=== PATIENT | male | born 1965 | race African-American/Black ===

== ENCOUNTER 2017-02-19 17:23 | Emergency (ER) | payer MEDICAID ==
[~2017-02-19] VITALS: Ht 172.7 cm; Wt 75.0 kg
[2017-02-19] MEDS ORDERED: DIPHENHYDRAMINE 50MG/ML VIAL IV ONE (20:45)
[2017-02-20] MEDS ORDERED: EPINEPHRINE 1:1000 1 MG/ML AMP INJ ONE (03:30)
[2017-02-20] MEDS ORDERED: NICOTINE 21MG PATCH TD ONE (04:00)
[2017-02-20] MEDS ORDERED: METHYLPREDNISOLONE SOD SUCC 125 MG/2 ML VIAL IV SCH (06:00)
[2017-02-20 07:21] VITALS: BP 157/100
== END 2017-02-20 08:17 | disposition left against medical advice (07) ==
LOC: ER 17:24
DX: T78.3XXA Angioneurotic edema, initial encounter (principal); R11.2 Nausea with vomiting, unspecified; R05 Cough; J45.909 Unspecified asthma, uncomplicated; I10 Essential (primary) hypertension; G43.909 Migraine, unspecified, not intractable, without status migrainosus; F12.10 Cannabis abuse, uncomplicated; Z88.8 Allergy status to other drugs, medicaments and biological substances; Z86.73 Personal history of transient ischemic attack (TIA), and cerebral infarction without residual deficits
CPT/HCPCS: 36415; 36430; 86850; 86900; 86901; 86927; 96372; 96374; 96375; 99285; J0171; J1200; J2930; J7040; P9017; Z7610

== ENCOUNTER 2017-04-29 03:50 | Emergency (ER) | payer MEDICAID ==
[~2017-04-29] VITALS: Ht 170.2 cm; Wt 65.0 kg
[2017-04-29 05:00] VITALS: BP 161/92
== END 2017-04-29 11:40 | disposition left against medical advice (07) ==
LOC: ER 10:33
DX: M54.5 Low back pain (principal); Z53.21 Procedure and treatment not carried out due to patient leaving prior to being seen by health care provider

== ENCOUNTER 2018-12-06 17:17 | Emergency (ER) | payer MEDICAID ==
[~2018-12-06] VITALS: Ht 170.2 cm; Wt 82.0 kg
[2018-12-06 17:30] VITALS: BP 105/76
== END 2018-12-06 23:30 | disposition left against medical advice (07) ==
LOC: ER 17:17
DX: Z53.21 Procedure and treatment not carried out due to patient leaving prior to being seen by health care provider (principal); I10 Essential (primary) hypertension; F17.200 Nicotine dependence, unspecified, uncomplicated; Z88.8 Allergy status to other drugs, medicaments and biological substances; Z86.73 Personal history of transient ischemic attack (TIA), and cerebral infarction without residual deficits

== ENCOUNTER 2018-12-23 16:41 | Emergency (ER) | payer MEDICAID ==
[~2018-12-23] VITALS: Ht 177.8 cm; Wt 73.0 kg
[2018-12-23 16:43] VITALS: BP 145/95
== END 2018-12-23 18:36 | disposition left against medical advice (07) ==
LOC: ER 16:41
DX: R68.84 Jaw pain (principal); Z53.21 Procedure and treatment not carried out due to patient leaving prior to being seen by health care provider

== ENCOUNTER 2018-12-24 01:56 | Emergency (ER) | payer MEDICAID ==
[~2018-12-24] VITALS: Ht 170.2 cm; Wt 60.0 kg
[2018-12-24] MEDS ORDERED: KETOROLAC 30MG/ML VIAL IV STA (06:32)
[2018-12-24 11:40] VITALS: BP 133/80
== END 2018-12-24 11:42 | disposition short-term general hospital (02) ==
LOC: ER 01:56
DX: S02.69XA Fracture of mandible of other specified site, initial encounter for closed fracture (principal); I10 Essential (primary) hypertension; F12.10 Cannabis abuse, uncomplicated; F17.210 Nicotine dependence, cigarettes, uncomplicated; Y04.0XXA Assault by unarmed brawl or fight, initial encounter; Y93.89 Activity, other specified; Y92.488 Other paved roadways as the place of occurrence of the external cause
CPT/HCPCS: 70450; 70486; 96374; 99285; J1885; Z7610

== ENCOUNTER 2019-02-04 02:58 | Emergency (ER) | payer MEDICAID ==
[~2019-02-04] VITALS: Ht 170.2 cm; Wt 64.3 kg
[2019-02-04 03:29] LABS: BASOPHILS % 0.5 % (0.0-2.0); HEMOGLOBIN. 14.6 g/dL (14.0-18.0); MEAN CORPUSCULAR VOLUME 97.7 fL (80.0-94.0); MEAN PLATELET VOLUME 7.5 fl (7.4-10.4); MONOCYTES % 11.4 % (2.0-8.0); NEUTROPHILS % 60.1 % (40.0-76.0); PLATELET 281 x1000/uL (130-400); RED CELL DISTRIBUTION WIDTH 13.5 % (11.6-14.6)
[2019-02-04 03:34] LABS: CHLORIDE 108 mEq/L (98-107)
[2019-02-04 03:37] LABS: PROTHROMBIN TIME 10.7 sec (9.6-11.0)
[2019-02-04 03:38] LABS: ETHANOL BLOOD 108 mg/dL
[2019-02-04 03:42] LABS: LDL CHOLESTEROL 65 mg/dL (5-100)
[2019-02-04] MEDS ORDERED: ASPIRIN 325MG EC TABLET PO ONE (04:00)
[2019-02-04 04:05] LABS: CLARITY URINE CLEAR (CLEAR); COLOR URINE YELLOW (YELLOW); KETONES URINE NEGATIVE (NEGATIVE); LEUKOCYTE ESTERASE URINE TRACE (NEGATIVE); NITRITE URINE NEGATIVE (NEGATIVE); OCCULT BLOOD URINE NEGATIVE (NEGATIVE); PH URINE 5.5 (4.5-8.0); PROTEIN URINE NEGATIVE (NEGATIVE); SPECIFIC GRAVITY URINE 1.008 (1.005-1.030); UROBILINOGEN URINE 0.2 E.U./dL (0.2-1.0)
[2019-02-04 04:15] LABS: *AMPHETAMINES SCREEN URINE NEGATIVE (NEGATIVE)
[2019-02-04 04:16] LABS: *BARBITURATES SCREEN URINE NEGATIVE (NEGATIVE); *BENZODIAZEPINES SCREEN URINE NEGATIVE (NEGATIVE); *COCAINE SCREEN URINE PRESUMTIVE POSITIVE (NEGATIVE); METHADONE URINE SCREEN NEGATIVE (NEGATIVE); OPIATES URINE SCREEN NEGATIVE (NEGATIVE); PHENCYCLIDINE URINE SCREEN PRESUMTIVE POSITIVE (NEGATIVE)
[2019-02-04 04:17] LABS: CANNABINOID URINE SCREEN PRESUMTIVE POSITIVE (NEGATIVE)
[2019-02-04] MEDS ORDERED: KETOROLAC 30MG/ML VIAL IV ONE (04:45)
[2019-02-04] MEDS ORDERED: AMLODIPINE 10MG TABLET PO ONE (10:15)
[2019-02-04 10:27] VITALS: BP 167/99
== END 2019-02-04 10:29 | disposition home or self-care (01) ==
LOC: ER 02:58 → EDBEDREQTM 03:59 → EDBEDREQSVC 03:59 → EDBEDREQ 03:59 → ER 10:29 → ENRESERV 14:38 → CANRESERV 14:38 → CANBEDREQ 18:21
DX: I63.9 Cerebral infarction, unspecified (principal); I10 Essential (primary) hypertension; F12.10 Cannabis abuse, uncomplicated; Z86.73 Personal history of transient ischemic attack (TIA), and cerebral infarction without residual deficits; Z91.041 Radiographic dye allergy status
CPT/HCPCS: 36415; 70450; 70551; 71045; 80053; 80305; 80320; 81003; 83721; 84484; 85025; 85610; 86850; 86900; 86901; 93005; 96374; 99284; J1885; G0480

== ENCOUNTER 2019-12-30 23:28 | Emergency (ER) | payer MEDICAID ==
[~2019-12-30] VITALS: Ht 170.2 cm; Wt 61.0 kg
[2019-12-31 01:39] VITALS: BP 162/74
== END 2019-12-31 05:08 | disposition home or self-care (01) ==
LOC: ER 23:28
DX: G43.909 Migraine, unspecified, not intractable, without status migrainosus (principal); F17.290 Nicotine dependence, other tobacco product, uncomplicated; F14.10 Cocaine abuse, uncomplicated; F12.10 Cannabis abuse, uncomplicated; F15.10 Other stimulant abuse, uncomplicated; I10 Essential (primary) hypertension; Z86.73 Personal history of transient ischemic attack (TIA), and cerebral infarction without residual deficits; Z91.041 Radiographic dye allergy status
CPT/HCPCS: 99281

== ENCOUNTER 2020-06-26 11:15 | Emergency (ER) | payer MEDICAID ==
[~2020-06-26] VITALS: Ht 170.2 cm; Wt 62.0 kg
[2020-06-26 14:17] VITALS: BP 132/78
== END 2020-06-26 14:17 | disposition home or self-care (01) ==
LOC: ER 11:15
DX: H60.92 Unspecified otitis externa, left ear (principal); F12.10 Cannabis abuse, uncomplicated; F15.10 Other stimulant abuse, uncomplicated; F14.10 Cocaine abuse, uncomplicated; Z91.041 Radiographic dye allergy status
CPT/HCPCS: 99283

== ENCOUNTER 2020-11-18 10:19 | Emergency (ER) | payer MEDICAID ==
[~2020-11-18] VITALS: Ht 167.6 cm; Wt 60.0 kg
[2020-11-18] MEDS ORDERED: AMLODIPINE 10MG TABLET PO ONE (10:45)
[2020-11-18] MEDS ORDERED: KETOROLAC 60MG/2ML VIAL IM ONE (10:45)
[2020-11-18 10:52] VITALS: BP 145/88
== END 2020-11-18 11:34 | disposition home or self-care (01) ==
LOC: ER 10:35
DX: S43.102A Unspecified dislocation of left acromioclavicular joint, initial encounter (principal); M25.512 Pain in left shoulder; X58.XXXA Exposure to other specified factors, initial encounter; Y93.9 Activity, unspecified; Y92.9 Unspecified place or not applicable; G43.909 Migraine, unspecified, not intractable, without status migrainosus; I10 Essential (primary) hypertension; Z76.0 Encounter for issue of repeat prescription; Z86.73 Personal history of transient ischemic attack (TIA), and cerebral infarction without residual deficits; Z91.041 Radiographic dye allergy status
CPT/HCPCS: 73030; 96372; 99283; J1885

== ENCOUNTER 2021-03-10 19:49 | Emergency (ER) | payer MEDICAID ==
[~2021-03-10] VITALS: Ht 170.2 cm; Wt 62.0 kg
[2021-03-10 21:40] VITALS: BP 155/98
[2021-03-10] MEDS ORDERED: AMLO10TA4 MT (21:53)
== END 2021-03-10 22:09 | disposition home or self-care (01) ==
LOC: ER 19:49
DX: Z76.0 Encounter for issue of repeat prescription (principal); I10 Essential (primary) hypertension; Z91.041 Radiographic dye allergy status; Z98.890 Other specified postprocedural states
CPT/HCPCS: 99281

== ENCOUNTER 2021-10-16 14:27 | Emergency (ER) | payer MEDICAID ==
[~2021-10-16] VITALS: Ht 170.2 cm; Wt 59.0 kg
[~2021-10-16 14:27] MED LIST: AMLO10TA4 MT
[2021-10-16] MEDS ORDERED: HYDROCODONE/ACETAMINOPHEN 5/325MG TABLET PO ONE (15:45)
[2021-10-16] MEDS ORDERED: LIDO1ADH5 TP (17:00)
[2021-10-16 17:11] VITALS: BP 152/57
== END 2021-10-16 17:12 | disposition home or self-care (01) ==
LOC: ER 14:30
DX: S09.8XXA Other specified injuries of head, initial encounter (principal); S16.1XXA Strain of muscle, fascia and tendon at neck level, initial encounter; I10 Essential (primary) hypertension; F14.10 Cocaine abuse, uncomplicated; F15.10 Other stimulant abuse, uncomplicated; F12.10 Cannabis abuse, uncomplicated; Z98.890 Other specified postprocedural states; Z91.041 Radiographic dye allergy status; W22.8XXA Striking against or struck by other objects, initial encounter; Y93.89 Activity, other specified; Y92.038 Other place in apartment as the place of occurrence of the external cause
CPT/HCPCS: 99284

== ENCOUNTER 2021-12-12 19:55 | Emergency (ER) | payer MEDICAID ==
[~2021-12-12] VITALS: Ht 170.2 cm; Wt 59.4 kg
[~2021-12-12 19:55] MED LIST changes: +LIDO1ADH5 TP
[2021-12-12 19:59] VITALS: BP 135/96
== END 2021-12-12 21:26 | disposition left against medical advice (07) ==
LOC: ER 19:55
DX: Z53.21 Procedure and treatment not carried out due to patient leaving prior to being seen by health care provider (principal)
CPT/HCPCS: 99281

== ENCOUNTER 2022-02-03 10:43 | Emergency (ER) | payer MEDICAID ==
[~2022-02-03] VITALS: Ht 170.2 cm; Wt 61.0 kg
[2022-02-03] MEDS ORDERED: KETOROLAC 60MG/2ML VIAL IM ONE (14:30)
[2022-02-03 14:56] VITALS: BP 156/96
[2022-02-03] MEDS ORDERED: METH-773 MT (15:12)
== END 2022-02-03 15:38 | disposition home or self-care (01) ==
LOC: ER 12:10
DX: R51.9 Headache, unspecified (principal); M25.512 Pain in left shoulder; M25.511 Pain in right shoulder; I10 Essential (primary) hypertension; W20.1XXA Struck by object due to collapse of building, initial encounter; Y93.9 Activity, unspecified; Y92.9 Unspecified place or not applicable; Z91.041 Radiographic dye allergy status; Z98.890 Other specified postprocedural states
CPT/HCPCS: 96372; 99283; J1885

== ENCOUNTER 2022-07-20 02:25 | Emergency (ER) | payer MEDICAID ==
[~2022-07-20] VITALS: Ht 170.2 cm; Wt 61.0 kg
[~2022-07-20 02:25] MED LIST changes: +METH-773 MT
[2022-07-20 02:31] VITALS: BP 135/80
[2022-07-20] MEDS ORDERED: KETOROLAC 30MG/ML VIAL IM ONE (05:00)
[2022-07-20] MEDS ORDERED: CYCLOBENZAPRINE 10MG TABLET PO ONE (05:00)
[2022-07-20] MEDS ORDERED: AMLO10TA4 MT (05:03)
[2022-07-20] MEDS ORDERED: CYCL10TA21 MT (05:03)
[2022-07-20] MEDS ORDERED: NAPR-1176 MT (05:03)
== END 2022-07-20 05:42 | disposition home or self-care (01) ==
LOC: ER 02:25
DX: M25.512 Pain in left shoulder (principal); R51.9 Headache, unspecified; S80.861A Insect bite (nonvenomous), right lower leg, initial encounter; I10 Essential (primary) hypertension; W57.XXXA Bitten or stung by nonvenomous insect and other nonvenomous arthropods, initial encounter; Y93.89 Activity, other specified; Y92.9 Unspecified place or not applicable; Z76.0 Encounter for issue of repeat prescription; Z91.041 Radiographic dye allergy status
CPT/HCPCS: 96372; 99283; J1885

== ENCOUNTER 2022-08-05 15:00 | Emergency (ER) | payer MEDICAID ==
[~2022-08-05 15:00] MED LIST changes: +CYCL10TA21 MT; +NAPR-1176 MT
== END 2022-08-05 16:01 | disposition left against medical advice (07) ==
LOC: ER 15:00
DX: Z53.21 Procedure and treatment not carried out due to patient leaving prior to being seen by health care provider (principal)

== ENCOUNTER 2022-09-15 23:35 | Emergency (ER) | payer MEDICAID ==
[~2022-09-15] VITALS: Ht 172.7 cm; Wt 63.0 kg
[2022-09-16] MEDS ORDERED: IBUPROFEN 600MG TABLET PO ONE (02:15)
[2022-09-16 02:55] VITALS: BP 155/100
== END 2022-09-16 02:57 | disposition home or self-care (01) ==
LOC: ER 23:35
DX: G89.29 Other chronic pain (principal); Z76.0 Encounter for issue of repeat prescription; F14.10 Cocaine abuse, uncomplicated; F12.10 Cannabis abuse, uncomplicated; F15.10 Other stimulant abuse, uncomplicated; I10 Essential (primary) hypertension; Z88.5 Allergy status to narcotic agent; Z79.899 Other long term (current) drug therapy; T20.07XA Burn of unspecified degree of neck, initial encounter; X58.XXXA Exposure to other specified factors, initial encounter; Y93.89 Activity, other specified; Y92.89 Other specified places as the place of occurrence of the external cause; Y99.8 Other external cause status
CPT/HCPCS: 99282

== ENCOUNTER 2023-01-18 15:19 | Emergency (ER) | payer MEDICAID ==
[~2023-01-18] VITALS: Ht 175.3 cm; Wt 61.0 kg
[2023-01-18] MEDS ORDERED: IBUP-2028 MT (15:55)
[2023-01-18] MEDS ORDERED: AMLO10TA4 MT (15:55)
[2023-01-18] MEDS ORDERED: IBUPROFEN 400MG TABLET PO ONE (16:00)
[2023-01-18 16:19] VITALS: BP 153/95
== END 2023-01-18 16:28 | disposition home or self-care (01) ==
LOC: ER 15:19
DX: R51.9 Headache, unspecified (principal); I10 Essential (primary) hypertension; Z91.041 Radiographic dye allergy status; Z98.890 Other specified postprocedural states
CPT/HCPCS: 99283

== ENCOUNTER 2023-01-31 04:33 | Emergency (ER) | payer MEDICAID ==
[~2023-01-31] VITALS: Ht 172.7 cm; Wt 58.2 kg
[~2023-01-31 04:33] MED LIST changes: +IBUP-2028 MT
[2023-01-31] MEDS ORDERED: AMLO2.5T2 MT (05:38)
[2023-01-31] MEDS ORDERED: AMLODIPINE 2.5MG TABLET PO ONE (05:45)
[2023-01-31 06:07] VITALS: BP 161/104
== END 2023-01-31 06:09 | disposition home or self-care (01) ==
LOC: ER 04:33
DX: I16.0 Hypertensive urgency (principal)
CPT/HCPCS: 99283